=== PATIENT | female | born 2000 | race Caucasian/White ===

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

== ENCOUNTER → 2021-01-08 | Outpatient (CLI) | payer BC, OTHER ==
[~2021-01-08] MED LIST changes: +PROHANCE 279.3MG/ML 15ML VIAL As Ordered ONE
--- NOTE | 2021-01-08 12:37 | REPVR ---
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 Contrast material: POHANCE; Contrast volume: 15 ml; Contrast route: INTRAVENOUS (IV); COMPARISON: No relevant prior studies available. FINDINGS: Brain: There is no evidence of acute hemorrhage or acute territorial infarct. Brain volume is maintained. The expected vascular flow voids are present. No abnormal enhancement. Limited increased T2 and FLAIR signal along the ventricular foramina and proximal 4th ventricle, without enhancement. Cerebral ventricles: No hydrocephalus. Bones/joints: Benign marrow signal on the T1 weighted images. Paranasal sinuses: Minimal paranasal sinus disease. Mastoid air cells: Normal as visualized. No mastoid effusion. Orbital cavity: The orbits are intact. Soft tissues: Unremarkable. IMPRESSION: No discrete mass or abnormal enhancement. If there is outside imaging documenting abnormalities of brain, it should be submitted for direct comparison. An addendum then be issued. Electronically signed by: Oz Noe On 01/08/2021 12:37:38 PM
== END ==
LOC: M RAD 08:18
PROVIDERS: ATTEND Neurological Surgery
DX: D33.0 Benign neoplasm of brain, supratentorial (principal); R51.9 Headache, unspecified; G89.29 Other chronic pain
CPT/HCPCS: 70553; A9576

== ENCOUNTER → 2021-01-28 | Outpatient (REF) | payer BC, OTHER ==
[~2021-01-28] MED LIST changes: -PROHANCE 279.3MG/ML 15ML VIAL As Ordered ONE
== END ==
LOC: M LAB REF 17:24
PROVIDERS: ATTEND Obstetrics & Gynecology
DX: A49.02 Methicillin resistant Staphylococcus aureus infection, unspecified site (principal)

== ENCOUNTER → 2021-03-19 | Outpatient (REF) | payer BC, OTHER | LOC: M LAB REF 16:57 | PROVIDERS: ATTEND Advanced Practice Midwife | DX: R30.0 Dysuria (principal) ==

== ENCOUNTER → 2021-08-21 | Outpatient (CLI) | payer BC, OTHER | LOC: M RAD 09:34 | PROVIDERS: ATTEND Pediatrics | DX: R10.9 Unspecified abdominal pain (principal) ==

== ENCOUNTER → 2021-09-19 | Outpatient (REF) | payer BC, OTHER | LOC: M LAB REF 16:08 | PROVIDERS: ATTEND Physician Assistant | DX: R50.9 Fever, unspecified (principal) ==

== ENCOUNTER 2021-12-07 06:32 | Emergency (ER) | payer BC, OTHER ==
[~2021-12-07] VITALS: Ht 165.1 cm; Wt 77.3 kg
[2021-12-07] MEDS ORDERED: LO LTAB PO (06:45)
[2021-12-07] MEDS ORDERED: FLUO20CA22 PO (06:45)
[2021-12-07 07:15] VITALS: O2SAT 100
[2021-12-07] MEDS ORDERED: IBUPROFEN 400MG TAB PO ONE (07:25)
[2021-12-07 08:17] VITALS: BP 93/54
[2021-12-07] MEDS ORDERED: NIRMATRELVIR/RITONAVIR CO-PACK (EMERGENCY USE AUTH) PO SCH ×2 (09:00)
== END 2021-12-07 08:31 | disposition home or self-care (01) ==
LOC: M ED 06:32
DX: U07.1 COVID-19 (principal); Z79.3 Long term (current) use of hormonal contraceptives; Z79.899 Other long term (current) drug therapy

== ENCOUNTER → 2022-01-05 | Outpatient (CLI) | payer BC, OTHER ==
[~2022-01-05] MED LIST changes: +FLUO20CA22 PO; +LO LTAB PO
== END ==
LOC: M WHC 10:27
PROVIDERS: ATTEND Obstetrics & Gynecology
DX: N91.2 Amenorrhea, unspecified (principal)

== ENCOUNTER → 2022-03-25 | Outpatient (CLI) | payer BC, OTHER | LOC: M LABSMTC 11:32 | PROVIDERS: ATTEND Anesthesiology | DX: Z01.812 Encounter for preprocedural laboratory examination (principal); Z20.822 Contact with and (suspected) exposure to COVID-19 ==

== ENCOUNTER 2022-03-30 06:45 | Day surgery (SDC) | payer BC, OTHER ==
[~2022-03-30] VITALS: Ht 165.1 cm; Wt 82.3 kg
[~2022-03-30 06:45] MED LIST changes: +NS 1,000 ML IV ONE
[2022-03-30] MEDS ORDERED: LIDOCAINE 2% 100MG/5ML SDV (FOR ANES.) As Ordered ONE (07:42)
[2022-03-30] MEDS ORDERED: propofoL 200 MG/20 ML VIAL As Ordered ONE (07:42)
[2022-03-30 08:24] VITALS: BP 120/66
== END 2022-03-30 08:28 | disposition home or self-care (01) ==
LOC: M OPP 06:45
PROVIDERS: ATTEND Internal Medicine Gastroenterology
DX: K29.70 Gastritis, unspecified, without bleeding (principal); K21.00 Gastro-esophageal reflux disease with esophagitis, without bleeding; Z79.1 Long term (current) use of non-steroidal anti-inflammatories (NSAID); Z79.3 Long term (current) use of hormonal contraceptives; F41.9 Anxiety disorder, unspecified; F32.9 Major depressive disorder, single episode, unspecified; F17.200 Nicotine dependence, unspecified, uncomplicated; Z80.3 Family history of malignant neoplasm of breast; Z83.79 Family history of other diseases of the digestive system; Z86.14 Personal history of Methicillin resistant Staphylococcus aureus infection; Z84.89 Family history of other specified conditions

== ENCOUNTER → 2022-04-14 | Outpatient (REF) | payer BC, OTHER ==
[~2022-04-14] MED LIST changes: -NS 1,000 ML IV ONE
== END ==
LOC: M LAB REF 16:12
PROVIDERS: ATTEND Physician Assistant Medical
DX: R50.9 Fever, unspecified (principal); R05.9 Cough, unspecified

== ENCOUNTER → 2022-04-23 | Outpatient (CLI) | payer BC, OTHER | LOC: M LABSMTC 11:00 | PROVIDERS: ATTEND Anesthesiology | DX: Z01.812 Encounter for preprocedural laboratory examination (principal); Z20.822 Contact with and (suspected) exposure to COVID-19 ==

== ENCOUNTER 2022-04-28 06:51 | Day surgery (SDC) | payer BC, OTHER ==
[~2022-04-28] VITALS: Ht 165.1 cm; Wt 80.9 kg
[~2022-04-28 06:51] MED LIST changes: +NS 1,000 ML IV ONE
[2022-04-28] MEDS ORDERED: LIDOCAINE 2% 100MG/5ML SDV (FOR ANES.) As Ordered ONE (07:45)
[2022-04-28] MEDS ORDERED: GLYCOPYRROLATE INJ 0.2 MG/ML 2 ML VIAL As Ordered ONE (07:45)
[2022-04-28] MEDS ORDERED: propofoL 200 MG/20 ML VIAL As Ordered ONE ×2 (07:45→07:47)
[2022-04-28 08:20] VITALS: BP 99/54
== END 2022-04-28 08:28 | disposition home or self-care (01) ==
LOC: M OPP 06:51
PROVIDERS: ATTEND Internal Medicine Gastroenterology
DX: K64.4 Residual hemorrhoidal skin tags (principal); K64.8 Other hemorrhoids; R19.4 Change in bowel habit; Z79.3 Long term (current) use of hormonal contraceptives; F32.9 Major depressive disorder, single episode, unspecified; F41.9 Anxiety disorder, unspecified; G43.909 Migraine, unspecified, not intractable, without status migrainosus; F17.290 Nicotine dependence, other tobacco product, uncomplicated; Z86.14 Personal history of Methicillin resistant Staphylococcus aureus infection; Z84.89 Family history of other specified conditions; Z80.3 Family history of malignant neoplasm of breast; Z83.79 Family history of other diseases of the digestive system

== ENCOUNTER → 2023-05-25 | Outpatient (CLI) | payer BC, OTHER ==
[~2023-05-25] MED LIST changes: -NS 1,000 ML IV ONE
== END ==
LOC: M WHC 07:39
PROVIDERS: ATTEND Advanced Practice Midwife
DX: N64.4 Mastodynia (principal)

== ENCOUNTER → 2024-02-29 | Outpatient (REF) | payer OTHER ==
[~2024-02-29] MED LIST changes: +FLUO-365 PO; -FLUO20CA22 PO
[2024-02-29 18:51] LABS: BLOOD UREA NITROGEN 10 MG/DL (9-23); CALCIUM LEVEL 10.1 MG/DL (8.5-10.1); CARBON DIOXIDE LEVEL 25 MMOL/L (20-31); CHLORIDE LEVEL 107 MMOL/L (98-107); CREATININE FOR GFR 0.69 MG/DL (0.55-1.30); GLOMERULAR FILTRATION RATE > 60.0 (>60); GLUCOSE, FASTING 74 MG/DL (60-100); MAGNESIUM LEVEL 2.1 MG/DL (1.8-2.4); POTASSIUM SERUM 4.3 MMOL/L (3.5-5.1); SODIUM LEVEL 139 MMOL/L (136-145)
[2024-02-29 18:52] LABS: THYROID STIMULATING HORMONE 1.102 uIU/ML (0.55-4.78)
== END ==
LOC: M LAB REF 18:05
PROVIDERS: ATTEND Pediatrics
DX: R00.2 Palpitations (principal)

== ENCOUNTER → 2024-08-14 | Outpatient (CLI) | payer BC | LOC: M PLAIMG 13:49 | PROVIDERS: ATTEND Physical Medicine & Rehabilitation | DX: M54.16 Radiculopathy, lumbar region (principal) ==